=== PATIENT | male | born 1990 | race Hispanic/Latino ===

== ENCOUNTER 2017-02-28 09:49 | Emergency (ER) | payer MEDICAID, OTHER ==
[2017-02-28 10:44] LABS: Hematocrit 46.2 % (42.0-52.0); Red Blood Cell (RBC) Count 5.14 mill/uL (4.70-6.10); White Blood Cell (WBC) Count 7.9 thou/uL (4.8-10.8)
[2017-02-28 10:45] LABS: #Basophils 0.1 thou/uL (0.0-0.2); #Eosinphils 0.5 thou/uL (0.0-0.7); #Lymphocytes 1.8 thou/uL (1.20-3.40); #Monocytes 0.6 thou/uL (0.11-0.59); %Basophils 0.7 % (0.0-1.0); %Eosinophils 5.7 % (0.0-10.0); %Lymphocytes 23.2 % (21.0-51.0)
--- NOTE | 2017-02-28 10:57 | CT ---
HEAD CT WITHOUT CONTRAST: Date: 02-28-17 Comparison: None. History: Syncopal episode, head trauma, pain. Technique: Serial axial CT imaging at 5 mm intervals from vertex through skull base without contrast. FINDINGS: There is partial opacification of the sphenoid sinuses bilaterally, right greater than left. There is complete opacification of bilateral ethmoid air cells. The mastoid air cells appear well aerated alin aterally. There is no displaced calvarial fracture. There is no intracranial hemorrhage, midline shift, or mass effect. IMPRESSION: Paranasal sinus disease. No displaced calvarial fracture or intracranial hemorrhage. POS: [facility]
[2017-02-28 11:00] LABS: ALT (SGPT) 36 U/L (8-55); Alkaline Phosphatase 90 U/L (40-150); BUN (Urea Nitrogen) 10 mg/dL (8.9-20.6); Bilirubin, Total 0.4 mg/dL (0.2-1.2); CK (CPK) 124 U/L (30-200); Calc. Creatinine Clearance 0 mL/min (70-130); Calcium 9.5 mg/dL (7.8-10.44); Carbon Dioxide 21 mmol/L (22-29); Chloride 107 mmol/L (98-107); Estimated GFR-MDRD Greater than 90
--- NOTE | 2017-02-28 11:02 | RAD ---
1 VIEW CHEST: Date: 02/28/17 HISTORY: Syncope. COMPARISON: 01/14/17. FINDINGS: Normal cardiac silhouette. Lungs and pleural spaces are clear. No pneumothorax or osseous abnormaliti es. IMPRESSION: No acute cardiopulmonary process. POS: [facility]
[2017-02-28 11:05] LABS: Troponin I Less than 0.010 ng/mL (< 0.028)
--- NOTE | 2017-02-28 11:21 | CT ---
CERVICAL SPINE CT WITHOUT CONTRAST: Date: 02/28/17 COMPARISON: None. HISTORY: Vomiting, syncope, fall with trauma and pain. TECHNIQUE: Serial axial CT imaging obtained at 2.5 mm intervals from skull base through lung apices without cont rast. Coronal and sagittal reformatted imaging obtained. FINDINGS: Imaged lung apices appear grossly unremarkable. The C1 ring is intact. The occipital condyles, dens, and C1-2 articulation demonstrate no acute findings. Craniocervical junction is intact. The atlantoaxial interspace in the cervicothoracic junction appear unremarkable. No prevertebral soft tissue abnormality. No anterolisthesis or retrolisthesis noted. N o fracture or evidence of dislocation. IMPRESSION: No acute findings. POS: [facility]
[2017-02-28 11:37] LABS: Bilirubin Small (Negative); Blood, Urine Negative (Negative); Glucose, Urine (Dipstick) Negative (Negative); Ketone, Urine Negative (Negative); Nitrite Negative (Negative); Protein, Urine (Dipstick) Negative (Neg-Trace); Urobilinogen 0.2 mg/dL (0.2-1.0)
[2017-02-28 11:38] LABS: Bacteria/HPF None Seen HPF (None Seen); Hyaline Casts/LPF 4-6 HYALINE CAST LPF (0-3 Hyaline); Squamous Epithelial 0-3 HPF (0-3); WBC/HPF 0-3 HPF (0-3)
[2017-02-28 11:49] LABS: Amphetamine Detected (NotDetected); Methadone Not Detected (NotDetected); Methamphetamine Not Detected (NotDetected)
[2017-02-28 11:50] LABS: Anion Gap 15 mmol/L (10-20)
[2017-02-28 11:51] LABS: Globulin 2.8 g/dL (2.4-3.5); Protein, Total 6.7 g/dL (6.0-8.3)
[2017-02-28 11:52] LABS: AST (SGOT) 22 U/L (5-34)
== END 2017-02-28 12:30 | disposition home or self-care (01) ==
LOC: ERS 09:49
DX: S13.4XXA Sprain of ligaments of cervical spine, initial encounter (principal); R55 Syncope and collapse; F41.9 Anxiety disorder, unspecified; F31.9 Bipolar disorder, unspecified; F17.210 Nicotine dependence, cigarettes, uncomplicated; J45.909 Unspecified asthma, uncomplicated; W18.30XA Fall on same level, unspecified, initial encounter
CPT/HCPCS: 36415; 36416; 70450; 71010; 72125; 80053; 80306; 81003; 82550; 82553; 84484; 85025; 93005; 96360; 99406

== ENCOUNTER 2020-04-18 14:09 | Emergency (ER) | payer MEDICAID, SELFPAY ==
--- NOTE | 2020-04-18 14:48 | RAD ---
EXAM: XR Shoulder Rt 3 View STANDARD PROVIDED CLINICAL HISTORY: Pain FINDINGS: There is no evidence for fracture or other acute osseous abnormality. Alignment appears anatomic. Sub acromial space appears preserved. IMPRESSION: No evidence for an acute osseous abnormality. If there is persistent clinical concern, conservative m anagement and follow-up imaging advised.
[2020-04-18] MEDS ORDERED: Ketorolac Tromethamine 30 MG/ML VIAL ONE ×2 (17:37→17:40)
== END 2020-04-18 17:45 | disposition home or self-care (01) ==
LOC: ERS 14:09
DX: S46.911A Strain of unspecified muscle, fascia and tendon at shoulder and upper arm level, right arm, initial encounter (principal); W18.11XA Fall from or off toilet without subsequent striking against object, initial encounter; Y92.002 Bathroom of unspecified non-institutional (private) residence as the place of occurrence of the external cause
CPT/HCPCS: 96372; J1885

== ENCOUNTER 2020-08-01 15:14 | Outpatient (CLI) | payer BC, MEDICAID | END 2020-08-01 15:15 | disposition home or self-care (01) | LOC: CTENTCT 15:14 | PROVIDERS: ATTEND Otolaryngology Plastic Surgery within the Head & Neck | DX: J32.9 Chronic sinusitis, unspecified (principal) | CPT/HCPCS: 70486 ==

== ENCOUNTER 2020-08-17 05:59 | Day surgery (SDC) | payer BC, MEDICAID ==
[2020-08-16 09:53] VITALS: BMI 32.5
[2020-08-17] MEDS ORDERED: AFRIN NASAL MIST 15 ML BOT ONE ×2 (06:17→06:39)
[2020-08-17] MEDS ORDERED: Bacitracin Zinc Ointment 30 gm TUBE ONE (06:39)
[2020-08-17] MEDS ORDERED: Lidocaine 1% w/Epinephrine 1:100K 20 ML VIAL ONE (06:39)
[2020-08-17] MEDS ORDERED: EPINEPHrine 1 MG/ML AMP ONE (06:39)
[2020-08-17] MEDS ORDERED: Fentanyl 100 MCG/2 ML VIAL ONE ×3 (06:41→09:57)
[2020-08-17] MEDS ORDERED: Midazolam HCl 2 mg/2 ml Vial ONE (06:41)
[2020-08-17] MEDS ORDERED: Lidocaine 4% Topical Sol 50 ML BOT ONE (06:51)
[2020-08-17] MEDS ORDERED: Albuterol Sulfate 2.5 mg/3 ml Neb ONE (07:21)
[2020-08-17] MEDS ORDERED: Dexamethasone 20 MG/5 ML VIAL ONE (07:46)
[2020-08-17] MEDS ORDERED: PROPOFOL 200 MG/20 ML VIAL ONE (07:46)
[2020-08-17] MEDS ORDERED: Glycopyrrolate 0.2 MG/ML 5 ML SYRINGE ONE (07:46)
[2020-08-17] MEDS ORDERED: Lidocaine 1% PF 5 ML VIAL ONE (07:46)
[2020-08-17] MEDS ORDERED: Ondansetron PF 4 MG/2 ML Vial ONE (07:46)
[2020-08-17] MEDS ORDERED: Rocuronium Bromide 10 MG/ML (10ML VIAL) ONE (07:46)
[2020-08-17] MEDS ORDERED: methylPREDNISolone Acetate 40 mg/ml Vial ONE (09:10)
[2020-08-17] MEDS ORDERED: Meperidine HCl/PF 25 MG/ML VIAL ONE (09:23)
[2020-08-17] MEDS ORDERED: Morphine 2 MG/ML VIAL ONE (10:30)
[2020-08-17] MEDS ORDERED: HYDROcodone/Acetaminophen 5/325 mg Tablet ONE (11:06)
== END 2020-08-17 12:15 | disposition home or self-care (01) ==
LOC: SDC 05:59
PROVIDERS: ATTEND Otolaryngology Plastic Surgery within the Head & Neck
PROC: 09BS8ZZ Excision of Right Frontal Sinus, Via Natural or Artificial Opening Endoscopic (ICD-10-PCS; principal; 2020-08-17)
PROC: 09TU8ZZ Resection of Right Ethmoid Sinus, Via Natural or Artificial Opening Endoscopic (ICD-10-PCS; principal; 2020-08-17)
PROC: 09QK0ZZ Repair Nasal Mucosa and Soft Tissue, Open Approach (ICD-10-PCS; principal; 2020-08-17)
PROC: 09BW8ZZ Excision of Right Sphenoid Sinus, Via Natural or Artificial Opening Endoscopic (ICD-10-PCS; principal; 2020-08-17)
PROC: 09TV8ZZ Resection of Left Ethmoid Sinus, Via Natural or Artificial Opening Endoscopic (ICD-10-PCS; principal; 2020-08-17)
PROC: 09BX8ZZ Excision of Left Sphenoid Sinus, Via Natural or Artificial Opening Endoscopic (ICD-10-PCS; principal; 2020-08-17)
PROC: 09SM0ZZ Reposition Nasal Septum, Open Approach (ICD-10-PCS; principal; 2020-08-17)
PROC: 09TL0ZZ Resection of Nasal Turbinate, Open Approach (ICD-10-PCS; principal; 2020-08-17)
PROC: 09BR8ZZ Excision of Left Maxillary Sinus, Via Natural or Artificial Opening Endoscopic (ICD-10-PCS; principal; 2020-08-17)
PROC: 09BT8ZZ Excision of Left Frontal Sinus, Via Natural or Artificial Opening Endoscopic (ICD-10-PCS; principal; 2020-08-17)
PROC: 8E09XBZ Computer Assisted Procedure of Head and Neck Region (ICD-10-PCS; principal; 2020-08-17)
PROC: 09BQ8ZZ Excision of Right Maxillary Sinus, Via Natural or Artificial Opening Endoscopic (ICD-10-PCS; principal; 2020-08-17)
DX: J32.4 Chronic pansinusitis (principal); J33.8 Other polyp of sinus; J30.89 Other allergic rhinitis; J34.2 Deviated nasal septum; J34.3 Hypertrophy of nasal turbinates; J34.89 Other specified disorders of nose and nasal sinuses; Z88.0 Allergy status to penicillin; Z88.1 Allergy status to other antibiotic agents; Z88.2 Allergy status to sulfonamides
CPT/HCPCS: 88304; C1889; J0171; J1100; J2175; J2250; J2270; J2405; J2704; J2920; J3010; J7611

== ENCOUNTER 2020-09-19 12:36 | Outpatient (CLI) | payer BC, MEDICAID | END 2020-09-19 12:37 | disposition home or self-care (01) | LOC: EEG 12:36 | PROVIDERS: ATTEND Psychiatry & Neurology Neurology | DX: G40.209 Localization-related (focal) (partial) symptomatic epilepsy and epileptic syndromes with complex partial seizures, not intractable, without status epilepticus (principal) | CPT/HCPCS: 95816 ==

== ENCOUNTER 2022-01-12 21:18 | Emergency (ER) | payer BC ==
[2022-01-12] MEDS ORDERED: predniSONE 20 MG TAB ONE (22:23)
[2022-01-12] MEDS ORDERED: Dexamethasone 10 MG/ML VIAL ONE (22:23)
[2022-01-12] MEDS ORDERED: Albuterol Sulfate 2.5 mg/3 ml Neb ONE (22:51)
== END 2022-01-12 23:29 | disposition home or self-care (01) ==
LOC: ERS 21:18
DX: J45.901 Unspecified asthma with (acute) exacerbation (principal); F17.290 Nicotine dependence, other tobacco product, uncomplicated
CPT/HCPCS: 71045; 93005; 94644; 96372; J1100; J7512; J7611; J7620

== ENCOUNTER 2023-09-06 10:49 | Emergency (ER) | payer BC, OTHER ==
[2023-09-06 11:37] LABS: #Basophils 0.07 10x3/uL (0.0-0.2); %Basophils 0.7 % (0.0-1.0); %Eosinophils 1.9 % (0.0-10.0); %Lymphocytes 22.1 % (21.0-51.0); %Monocytes 5.7 % (0.0-10.0); %Neutrophils 69.1 % (42.0-75.0); Hematocrit 45.9 % (42.0-52.0); Hemoglobin 15.8 g/dL (14.0-18.0); Mean Corpuscular HGB CONC 34.4 g/dL (32.0-36.0); Mean Corpuscular Hemoglobin 29.7 pg (27.0-31.0); Mean Corpuscular Volume 86.3 fL (78.0-98.0); Platelet Count 235 10x3/uL (130-400); Red Blood Cell (RBC) Count 5.32 mill/uL (4.70-6.10)
[2023-09-06 11:51] LABS: PTT 27.5 sec (22.9-36.1)
[2023-09-06 11:57] LABS: Troponin I Less than 0.010 ng/mL (< 0.028)
[2023-09-06 12:54] LABS: Bacteria/HPF None Seen HPF (None Seen); Bilirubin Negative (Negative); Blood, Urine Negative (Negative); CAUTI Indications for Culture Alt mental st,lethar; Clarity Clear (Clear); Glucose, Urine (Dipstick) Normal (Negative); Ketone, Urine Negative (Negative); Leukocyte Negative Leu/uL (Negative); Nitrite Negative (Negative); Protein, Urine (Dipstick) Negative (Neg-Trace); RBC/HPF 0-3 HPF (0-3); Specific Gravity, Urine 1.024 (1.002-1.036); Squamous Epithelial None Seen HPF (0-3); Urobilinogen Normal mg/dL (Less than 2); WBC/HPF None Seen HPF (0-3); pH, Urine 8.5 (5.0-9.0)
[2023-09-06 12:55] LABS: Urine Culture Reflex No No
[2023-09-06 13:02] LABS: Amphetamine Not Detected (NotDetected); Barbiturates Screen Not Detected (NotDetected); Benzodiazepine Screen Not Detected (NotDetected); Cocaine Metabolite Screen Not Detected (NotDetected); Methadone Not Detected (NotDetected); Methamphetamine Not Detected (NotDetected); Opiate Screen Not Detected (NotDetected); Oxycodone Screen Not Detected (NotDetected); Phencyclidine (PCP) Not Detected (NotDetected); THC/Cannabinoid Screen Detected (NotDetected); Tricyclic Screen Not Detected (NotDetected)
[2023-09-06 14:02] LABS: ALT (SGPT) 21 U/L (8-55); AST (SGOT) 22 U/L (5-34); Albumin 3.8 g/dL (3.5-5.0); Alkaline Phosphatase 62 U/L (40-110); Anion Gap 12 mmol/L (10-20); BUN (Urea Nitrogen) 12 mg/dL (8.9-20.6); Bilirubin, Total 0.8 mg/dL (0.2-1.2); Calc. Creatinine Clearance 0 mL/min (70-130); Calcium 8.9 mg/dL (7.8-10.44); Carbon Dioxide 23 mmol/L (22-29); Chloride 107 mmol/L (98-107); Estimated GFR 104; Globulin 2.7 g/dL (2.4-3.5); Glucose 75 mg/dL (70-105); Potassium 3.6 mmol/L (3.5-5.1); Protein, Total 6.5 g/dL (6.0-8.3); Sodium 138 mmol/L (136-145)
== END 2023-09-06 13:52 | disposition left against medical advice (07) ==
LOC: ERS 10:49
DX: G43.909 Migraine, unspecified, not intractable, without status migrainosus (principal); G83.84 Todd's paralysis (postepileptic); F17.210 Nicotine dependence, cigarettes, uncomplicated; F17.290 Nicotine dependence, other tobacco product, uncomplicated
CPT/HCPCS: 36415; 70450; 70496; 70498; 71045; 80053; 80306; 81001; 84484; 85025; 85610; 85730; 93005; 94760

== ENCOUNTER 2023-09-16 08:26 | Emergency (ER) | payer BC ==
[2023-09-16] MEDS ORDERED: LORazepam 2 MG/ML SYR.(CARPUJECT) ONE (08:31)
[2023-09-16 09:01] LABS: #Basophils 0.06 10x3/uL (0.0-0.2); %Basophils 0.9 % (0.0-1.0); %Eosinophils 6.5 % (0.0-10.0); %Lymphocytes 29.1 % (21.0-51.0); %Monocytes 7.1 % (0.0-10.0); %Neutrophils 55.9 % (42.0-75.0); Hematocrit 45.1 % (42.0-52.0); Hemoglobin 15.4 g/dL (14.0-18.0); Mean Corpuscular HGB CONC 34.1 g/dL (32.0-36.0); Mean Corpuscular Hemoglobin 29.4 pg (27.0-31.0); Mean Corpuscular Volume 86.1 fL (78.0-98.0); Mean Platelet Volume 10.4 fL (7.4-10.4); Platelet Count 218 10x3/uL (130-400); RBC Distribution Width 11.9 % (11.5-14.5); Red Blood Cell (RBC) Count 5.24 mill/uL (4.70-6.10)
[2023-09-16 09:11] LABS: ALT (SGPT) 20 U/L (8-55); AST (SGOT) 21 U/L (5-34); Albumin 3.9 g/dL (3.5-5.0); Alkaline Phosphatase 69 U/L (40-110); Anion Gap 15 mmol/L (10-20); BUN (Urea Nitrogen) 12 mg/dL (8.9-20.6); Bilirubin, Total 0.6 mg/dL (0.2-1.2); Calc. Creatinine Clearance 0 mL/min (70-130); Calcium 9.5 mg/dL (7.8-10.44); Carbon Dioxide 22 mmol/L (22-29); Chloride 106 mmol/L (98-107); Estimated GFR 106; Globulin 3.2 g/dL (2.4-3.5); Glucose 92 mg/dL (70-105); Protein, Total 7.1 g/dL (6.0-8.3); Sodium 139 mmol/L (136-145)
== END 2023-09-16 10:26 | disposition home or self-care (01) ==
LOC: ERS 08:26
DX: S09.90XA Unspecified injury of head, initial encounter (principal); R56.9 Unspecified convulsions; F17.290 Nicotine dependence, other tobacco product, uncomplicated; W19.XXXA Unspecified fall, initial encounter
CPT/HCPCS: 70450; 80053; 85025; 93005; 96374; J2060

== ENCOUNTER 2023-09-23 13:51 | Emergency (ER) | payer BC ==
[2023-09-23 14:25] LABS: #Basophils 0.06 10x3/uL (0.0-0.2); %Basophils 0.8 % (0.0-1.0); %Eosinophils 3.3 % (0.0-10.0); %Lymphocytes 24.8 % (21.0-51.0); %Monocytes 6.8 % (0.0-10.0); %Neutrophils 63.9 % (42.0-75.0); Hematocrit 43.6 % (42.0-52.0); Hemoglobin 14.9 g/dL (14.0-18.0); Mean Corpuscular HGB CONC 34.2 g/dL (32.0-36.0); Mean Corpuscular Hemoglobin 29.6 pg (27.0-31.0); Mean Corpuscular Volume 86.5 fL (78.0-98.0); Mean Platelet Volume 10.8 fL (7.4-10.4); Platelet Count 200 10x3/uL (130-400); Red Blood Cell (RBC) Count 5.04 mill/uL (4.70-6.10)
[2023-09-23] MEDS ORDERED: levETIRAcetam 500 MG (5 mL) VIAL ONE (14:31)
[2023-09-23] MEDS ORDERED: LORazepam 2 MG/ML SYR.(CARPUJECT) ONE (14:32)
[2023-09-23 14:37] LABS: ALT (SGPT) 20 U/L (8-55); AST (SGOT) 22 U/L (5-34); Albumin 3.9 g/dL (3.5-5.0); Alkaline Phosphatase 69 U/L (40-110); Anion Gap 15 mmol/L (10-20); BUN (Urea Nitrogen) 14 mg/dL (8.9-20.6); Bilirubin, Total 0.4 mg/dL (0.2-1.2); Calc. Creatinine Clearance 0 mL/min (70-130); Calcium 9.1 mg/dL (7.8-10.44); Carbon Dioxide 22 mmol/L (22-29); Chloride 105 mmol/L (98-107); Estimated GFR 97; Glucose 83 mg/dL (70-105); Potassium 3.7 mmol/L (3.5-5.1); Protein, Total 6.9 g/dL (6.0-8.3); Sodium 138 mmol/L (136-145)
== END 2023-09-23 17:20 | disposition home or self-care (01) ==
LOC: ERS 13:51
DX: R56.9 Unspecified convulsions (principal); F17.290 Nicotine dependence, other tobacco product, uncomplicated; Z55.6 Problems related to health literacy
CPT/HCPCS: 80053; 85025; 93005; 96374; 96375; J1953; J2060

== ENCOUNTER 2023-10-02 09:19 | Emergency (ER) | payer BC ==
[2023-10-02] MEDS ORDERED: levETIRAcetam 500 MG (5 mL) VIAL ONE ×2 (09:50→12:06)
[2023-10-02] MEDS ORDERED: LORazepam 2 MG/ML SYR.(CARPUJECT) ONE ×2 (09:54→10:07)
[2023-10-02 10:10] LABS: #Basophils 0.07 10x3/uL (0.0-0.2); %Basophils 1.3 % (0.0-1.0); %Eosinophils 7.4 % (0.0-10.0); %Lymphocytes 35.4 % (21.0-51.0); %Monocytes 9.8 % (0.0-10.0); %Neutrophils 45.5 % (42.0-75.0); Hematocrit 42.4 % (42.0-52.0); Hemoglobin 14.2 g/dL (14.0-18.0); Mean Corpuscular HGB CONC 33.5 g/dL (32.0-36.0); Mean Corpuscular Hemoglobin 29.8 pg (27.0-31.0); Mean Corpuscular Volume 89.1 fL (78.0-98.0); Mean Platelet Volume 10.3 fL (7.4-10.4); Platelet Count 193 10x3/uL (130-400); RBC Distribution Width 11.9 % (11.5-14.5); Red Blood Cell (RBC) Count 4.76 mill/uL (4.70-6.10)
[2023-10-02 10:39] LABS: ALT (SGPT) 21 U/L (8-55); AST (SGOT) 22 U/L (5-34); Acetaminophen Less than 10 mcg/mL (10.0-30.0); Albumin 3.6 g/dL (3.5-5.0); Alcohol Less than 10.0 mg/dL (Less than 10); Alkaline Phosphatase 66 U/L (40-110); Anion Gap 13 mmol/L (10-20); BUN (Urea Nitrogen) 15 mg/dL (8.9-20.6); Bilirubin, Total 0.3 mg/dL (0.2-1.2); Calc. Creatinine Clearance 0 mL/min (70-130); Calcium 8.4 mg/dL (7.8-10.44); Carbon Dioxide 18 mmol/L (22-29); Chloride 112 mmol/L (98-107); Estimated GFR 116; Globulin 2.7 g/dL (2.4-3.5); Glucose 83 mg/dL (70-105); Potassium 3.9 mmol/L (3.5-5.1); Protein, Total 6.3 g/dL (6.0-8.3); Salicylate Less than 8.0 mg/dL (15.0-30.0); Sodium 139 mmol/L (136-145)
== END 2023-10-02 13:50 | disposition left against medical advice (07) ==
LOC: ERS 09:19
DX: R56.9 Unspecified convulsions (principal); J45.909 Unspecified asthma, uncomplicated; I30.9 Acute pericarditis, unspecified; C15.9 Malignant neoplasm of esophagus, unspecified; F17.290 Nicotine dependence, other tobacco product, uncomplicated; Z79.899 Other long term (current) drug therapy
CPT/HCPCS: 36415; 70450; 80053; 80177; 80307; 85025; 93005; 96374; 96375; 96376; J1953; J2060